=== PATIENT | male | born 1975 | race Caucasian/White ===

== ENCOUNTER 2016-08-24 19:27 | Inpatient (IN) | payer MEDICARE, MEDICAID ==
[~2016-08-24] VITALS: Ht 165.1 cm; Wt 69.4 kg
[2016-08-24] MEDS ORDERED: CARB200T6 PO (20:05)
[2016-08-24] MEDS ORDERED: CLON2 PO (20:06)
[2016-08-24 20:28] LABS: BASOPHILS % (AUTO) 0.4 % (0.0-2.0); EOSINOPHILS % (AUTO) 3.2 % (1.0-6.0); HEMATOCRIT 46.4 % (41-53); HEMOGLOBIN 15.1 g/dL (13.5-17.5); LYMPHOCYTES # (AUTO) 1.8 K/uL (1.0-4.8); LYMPHOCYTES % (AUTO) 25.2 % (22.0-44.0); MEAN CORPUSCULAR HEMOGLOBIN 29.6 pg (26.0-34.0); MEAN CORPUSCULAR HGB CONC 32.6 G/dL (31.0-37.0); MEAN CORPUSCULAR VOLUME 91 fL (80-100); MONOCYTES # (AUTO) 0.4 K/uL (0.1-1.0); MONOCYTES % (AUTO) 5.1 % (2.0-9.0); NEUTROPHILS # (AUTO) 4.8 K/uL (1.8-7.7); NEUTROPHILS % (AUTO) 66.1 % (40.0-70.0); PLATELET COUNT (AUTO) 229 K/uL (150-450); RED CELL DISTRIBUTION WIDTH 13.2 % (11.5-14.5); WHITE BLOOD COUNT (AUTO) 7.2 K/uL (4.5-11.0)
[2016-08-24 20:35] LABS: ANION GAP 6 mmol/L (8-16); CALCIUM, TOTAL 8.6 mg/dL (8.8-10.5); CARBON DIOXIDE 29 mmol/L (22-29); CHLORIDE 103 mmol/L (98-107); CREATININE 0.85 mg/dL (0.60-1.30); GLOMERULAR FILTR. RATE CALC > 60 mL/min (>60); POTASSIUM 3.5 mmol/L (3.5-5.1); SODIUM SERUM 138 mmol/L (136-145); UREA NITROGEN, BLOOD 8 mg/dL (7-18)
[2016-08-24 20:44] LABS: ALANINE AMINOTRANSFERASE 68 U/L (12-78); ALBUMIN 3.8 g/dL (3.4-5.0); ASPARTATE AMINOTRANSFERASE 31 U/L (15-37); BILIRUBIN,TOTAL 0.2 mg/dL (0.1-1.0); TOTAL PROTEIN, SERUM 8.1 g/dL (6.4-8.2)
[2016-08-24] MEDS ORDERED: HALOPERIDOL 5 MG TABLET PO PRN (21:00)
[2016-08-24] MEDS ORDERED: ZOLPIDEM TARTRATE 10 MG TABLET PO PRN (21:00)
[2016-08-24] MEDS ORDERED: LORazepam 2 MG TABLET PO PRN (21:00)
[2016-08-24] MEDS ORDERED: DIVALPROEX SODIUM 500 MG ER TABLET PO ONE (23:15)
[2016-08-24] MEDS ORDERED: ClonazePAM 1 MG TABLET PO ONE (23:15)
[2016-08-25 00:50] VITALS: BP 144/92
[2016-08-25] MEDS ORDERED: IBUPROFEN 600 MG TABLET PO PRN (06:30)
[2016-08-25] MEDS ORDERED: ACETAMINOPHEN 325 MG TABLET PO PRN (06:30)
[2016-08-25 07:48] LABS: ADD UA MICROSCOPIC NO; APPEARANCE,URINE CLEAR (CLEAR); GLUCOSE, URINE (UA) NEGATIVE (NEGATIVE); KETONES,URINE NEGATIVE (NEGATIVE); LEUKOCYTE ESTERASE ,URINE NEGATIVE (NEGATIVE); OCCULT BLOOD,URINE NEGATIVE (NEGATIVE); PH,URINE 7.5 (5.0-8.0); PROTEIN,URINE NEGATIVE (NEGATIVE)
[2016-08-25 08:21] VITALS: BP 116/73
[2016-08-25] MEDS ORDERED: CLON1 PO (10:40)
[2016-08-25 16:39] VITALS: BP 117/73
[2016-08-25] MEDS: CarBAMazepine 200 MG TABLET PO SCH (20:46)
[2016-08-25] MEDS: ClonazePAM 1 MG TABLET PO SCH (20:46)
[2016-08-25 22:46] VITALS: BP 120/69
[2016-08-26 00:09] VITALS: BP 137/71
[2016-08-26 08:15] VITALS: BP 122/86
[2016-08-26] MEDS: ClonazePAM 1 MG TABLET PO SCH ×2 (08:15→20:00)
[2016-08-26 16:15] VITALS: BP 150/99
[2016-08-26 19:08] VITALS: BP 148/84
[2016-08-26] MEDS: CarBAMazepine 200 MG TABLET PO SCH (20:00)
[2016-08-27] MEDS: ClonazePAM 1 MG TABLET PO SCH ×2 (08:14→20:45)
[2016-08-27 11:00] VITALS: BP 112/59
[2016-08-27 16:11] VITALS: BP 128/75
[2016-08-27] MEDS: CarBAMazepine 200 MG TABLET PO SCH (20:45)
[2016-08-28 05:00] VITALS: BP 138/68
[2016-08-28] MEDS: ClonazePAM 1 MG TABLET PO SCH ×2 (08:06→20:04)
[2016-08-28 10:21] VITALS: BP 115/71
[2016-08-28 16:48] VITALS: BP 116/72
[2016-08-28] MEDS: CarBAMazepine 200 MG TABLET PO SCH (20:05)
[2016-08-29 06:22] VITALS: BP 119/70
[2016-08-29] MEDS: ClonazePAM 1 MG TABLET PO SCH (08:50)
[2016-08-29 13:44] VITALS: BP 136/77
== END 2016-08-29 16:45 | disposition home or self-care (01) | DRG 885 ==
LOC: EMS 19:28 → 3EX 22:30
PROVIDERS: ADMIT Psychiatry & Neurology Child & Adolescent Psychiatry; ATTEND Psychiatry & Neurology Child & Adolescent Psychiatry
DX: F25.9 Schizoaffective disorder, unspecified (principal); R45.851 Suicidal ideations; I69.351 Hemiplegia and hemiparesis following cerebral infarction affecting right dominant side; F20.0 Paranoid schizophrenia; F41.9 Anxiety disorder, unspecified; G40.909 Epilepsy, unspecified, not intractable, without status epilepticus; M21.371 Foot drop, right foot; G80.9 Cerebral palsy, unspecified; R51 Headache; R26.9 Unspecified abnormalities of gait and mobility; Z79.899 Other long term (current) drug therapy; Z82.3 Family history of stroke
CPT/HCPCS: 99285; G0480

== ENCOUNTER 2016-12-13 13:02 | Emergency (ER) | payer MEDICARE, MEDICAID ==
[~2016-12-13] VITALS: Ht 152.4 cm; Wt 60.0 kg
[~2016-12-13 13:02] MED LIST: CARB200T6 PO; CLON1 PO
[2016-12-13] MEDS ORDERED: PHEN50 PO (13:32)
[2016-12-13] MEDS ORDERED: BUSP5TAB20 PO (13:32)
[2016-12-13] MEDS ORDERED: PRIM250T30 PO (13:32)
[2016-12-13] MEDS ORDERED: LAMO25 PO (13:32)
[2016-12-13] MEDS ORDERED: AMIT10TA6 PO (13:32)
[2016-12-13] MEDS ORDERED: RISP1 PO (13:32)
[2016-12-13] MEDS ORDERED: BUSP10TA23 PO (13:33)
[2016-12-13] MEDS ORDERED: LAMO100 PO (13:33)
[2016-12-13] MEDS ORDERED: ACETAMINOPHEN 500 MG TABLET PO ONE (13:45)
[2016-12-13 14:03] LABS: BASOPHILS # (AUTO) 0.02 K/uL (0.00-0.20); BASOPHILS % (AUTO) 0.3 % (0.0-2.0); EOSINOPHILS # (AUTO) 0.05 K/uL (0.00-0.70); EOSINOPHILS % (AUTO) 0.72 % (1.0-6.0); HEMATOCRIT 43.5 % (41-53); HEMOGLOBIN 15.1 g/dL (13.5-17.5); MEAN CORPUSCULAR HEMOGLOBIN 30.9 pg (26.0-34.0); MEAN CORPUSCULAR HGB CONC 34.7 G/dL (31.0-37.0); MEAN CORPUSCULAR VOLUME 89 fL (80-100); MONOCYTES # (AUTO) 0.3 K/uL (0.1-1.0); MONOCYTES % (AUTO) 4.2 % (2.0-9.0); NEUTROPHILS # (AUTO) 5.9 K/uL (1.8-7.7); NEUTROPHILS % (AUTO) 80.8 % (40.0-70.0); PLATELET COUNT (AUTO) 235 K/uL (150-450); RED BLOOD CELL COUNT(AUTO) 4.87 MIL/uL (4.50-5.90); RED CELL DISTRIBUTION WIDTH 13.2 % (11.5-14.5); WHITE BLOOD COUNT (AUTO) 7.3 K/uL (4.5-11.0)
[2016-12-13 14:15] LABS: ANION GAP 11 mmol/L (8-16); CALCIUM, TOTAL 8.8 mg/dL (8.8-10.5); CARBON DIOXIDE 25 mmol/L (22-29); CHLORIDE 101 mmol/L (98-107); CREATININE 0.61 mg/dL (0.60-1.30); GLOMERULAR FILTR. RATE CALC > 60 mL/min (>60); POTASSIUM 3.4 mmol/L (3.5-5.1); SODIUM SERUM 137 mmol/L (136-145); UREA NITROGEN, BLOOD 5 mg/dL (7-18)
[2016-12-13 14:20] LABS: ALANINE AMINOTRANSFERASE 29 U/L (12-78); ALBUMIN 3.9 g/dL (3.4-5.0); ASPARTATE AMINOTRANSFERASE 13 U/L (15-37); BILIRUBIN,TOTAL 0.2 mg/dL (0.1-1.0); TOTAL PROTEIN, SERUM 8.3 g/dL (6.4-8.2)
[2016-12-13 15:21] LABS: APPEARANCE,URINE CLEAR (CLEAR); GLUCOSE, URINE (UA) NEGATIVE (NEGATIVE); KETONES,URINE NEGATIVE (NEGATIVE); LEUKOCYTE ESTERASE ,URINE NEGATIVE (NEGATIVE); OCCULT BLOOD,URINE NEGATIVE (NEGATIVE); PH,URINE 6.5 (5.0-8.0); PROTEIN,URINE NEGATIVE (NEGATIVE)
[2016-12-13 15:31] LABS: ADD UA MICROSCOPIC NO
[2016-12-13 17:03] VITALS: BP 115/68
== END 2016-12-13 17:06 | disposition home or self-care (01) ==
LOC: EMS 13:03
DX: R14.0 Abdominal distension (gaseous) (principal); R19.7 Diarrhea, unspecified
CPT/HCPCS: 99284

== ENCOUNTER 2019-04-12 17:51 | Emergency (ER) | payer MEDICARE, MEDICAID ==
[~2019-04-12] VITALS: Ht 152.4 cm; Wt 65.0 kg
[~2019-04-12 17:51] MED LIST changes: +AMIT10TA6 PO; +BUSP10TA23 PO; -CARB200T6 PO; -CLON1 PO; +CLON1TAB13 PO; +LAMO100 PO; +PHEN50 PO; +RISP1 PO; +[UNRECOGNIZED DRUG - CODE] PO
[2019-04-12] MEDS ORDERED: HYDROCODONE/ACETAMINOPHEN 5-325 MG TABLET PO ONE (19:30)
[2019-04-12] MEDS ORDERED: CARB200T6 PO (19:39)
[2019-04-12] MEDS ORDERED: PRIM50 PO (19:39)
[2019-04-12] MEDS ORDERED: AMIT50TA3 PO (19:39)
[2019-04-12] MEDS ORDERED: PHENY100 PO (19:39)
[2019-04-12] MEDS ORDERED: DIVA500T52 PO (19:39)
[2019-04-12] MEDS ORDERED: ATOR10TA69 PO (19:39)
[2019-04-12 20:15] VITALS: BP 138/90
== END 2019-04-12 20:15 | disposition home or self-care (01) ==
LOC: EMS 17:53
DX: S40.011A Contusion of right shoulder, initial encounter (principal); F41.9 Anxiety disorder, unspecified; F31.9 Bipolar disorder, unspecified; F20.9 Schizophrenia, unspecified; Z79.899 Other long term (current) drug therapy; W01.0XXA Fall on same level from slipping, tripping and stumbling without subsequent striking against object, initial encounter; Y93.89 Activity, other specified; Y92.89 Other specified places as the place of occurrence of the external cause; Y99.8 Other external cause status

== ENCOUNTER 2023-01-21 14:48 | Emergency (ER) | payer MEDICARE, MEDICAID ==
[~2023-01-21] VITALS: Ht 160 cm; Wt 63.6 kg
[~2023-01-21 14:48] MED LIST changes: -AMIT10TA6 PO; +AMIT50TA4 PO; +ATOR10TA69 PO; +CARB200T6 PO; +CLON-595 PO; -CLON1TAB13 PO; +DIVA500T53 PO; +LAMO-24 PO; -LAMO100 PO; +PHEN100C10 PO; -PHEN50 PO; +PRIM250T3 PO; +PRIM50TA3 PO; -RISP1 PO; +RISP1TAB48 PO; -[UNRECOGNIZED DRUG - CODE] PO
[2023-01-21] MEDS ORDERED: LevETIRAcetam 1,000 MG in DEXTROSE 5%-WATER 100 ML IV ONE (15:00)
[2023-01-21 16:04] LABS: BASOPHILS % (AUTO) 0.6 % (0.0-2.0); EOSINOPHILS % (AUTO) 1.5 % (1.0-6.0); HEMATOCRIT 37.7 % (41-53); HEMOGLOBIN 13.4 g/dL (13.5-17.5); LYMPHOCYTES # (AUTO) 1.4 K/uL (1.0-4.8); LYMPHOCYTES % (AUTO) 19.3 % (22.0-44.0); MEAN CORPUSCULAR HEMOGLOBIN 31.9 pg (26.0-34.0); MEAN CORPUSCULAR HGB CONC 35.5 G/dL (31.0-37.0); MEAN CORPUSCULAR VOLUME 90 fL (80-100); MONOCYTES # (AUTO) 0.6 K/uL (0.1-1.0); MONOCYTES % (AUTO) 7.8 % (2.0-9.0); NEUTROPHILS # (AUTO) 5.1 K/uL (1.8-7.7); NEUTROPHILS % (AUTO) 70.8 % (40.0-70.0); PLATELET COUNT (AUTO) 195 K/uL (150-450); RED CELL DISTRIBUTION WIDTH 13.3 % (11.5-14.5); WHITE BLOOD COUNT (AUTO) 7.2 K/uL (4.5-11.0)
[2023-01-21 16:20] LABS: B-TYPE NATRIURETIC PEPTIDE 11 pg/mL (0-100)
[2023-01-21 16:22] VITALS: TEMP 98.2
[2023-01-21 16:22] LABS: TROPONIN I-HIGH SENSITIVITY Less Than 4 ng/L (<76)
[2023-01-21 16:25] LABS: ANION GAP 6 mmol/L (8-16); CALCIUM, TOTAL 9.3 mg/dL (8.8-10.5); CARBON DIOXIDE 28 mmol/L (22-29); CHLORIDE 94 mmol/L (98-107); CREATININE 0.61 mg/dL (0.60-1.30); GLOMERULAR FILTR. RATE CALC > 60 mL/min (>60); GLUCOSE,RANDOM 116 mg/dL (70-110); SODIUM SERUM 128 mmol/L (136-145); UREA NITROGEN, BLOOD 5 mg/dL (7-18)
[2023-01-21 16:38] LABS: PLATELET MORPHOLOGY COMMENT LARGE PLTS PRESENT; RBC MORPHOLOGY COMMENT NORMAL RBC MORPH
[2023-01-21 16:47] LABS: ALANINE AMINOTRANSFERASE 64 U/L (12-78); ALBUMIN 3.4 g/dL (3.4-5.0); ALKALINE PHOSPHATASE 76 U/L (46-116); ASPARTATE AMINOTRANSFERASE 33 U/L (15-37); BILIRUBIN,TOTAL 0.2 mg/dL (0.1-1.0); CREATINE KINASE, TOTAL ONLY 92 U/L (39-308); TOTAL PROTEIN, SERUM 8.2 g/dL (6.4-8.2)
[2023-01-21 19:45] VITALS: BP 137/78; PULSE 91; RESP 18
== END 2023-01-21 21:17 | disposition home or self-care (01) ==
LOC: EMS 15:43
DX: G40.909 Epilepsy, unspecified, not intractable, without status epilepticus (principal); F41.9 Anxiety disorder, unspecified; F31.9 Bipolar disorder, unspecified; F20.9 Schizophrenia, unspecified
CPT/HCPCS: 99285; 96365; 70450; 71045; 80053; 82550; 83880; 84484; 85025; 36415; 93005; J0712; J7060

== ENCOUNTER 2023-04-09 12:16 | Emergency (ER) | payer MEDICARE, MEDICAID ==
[~2023-04-09] VITALS: Ht 152.4 cm; Wt 78.2 kg
[2023-04-09 12:38] VITALS: TEMP 98.7
[2023-04-09] MEDS ORDERED: LevETIRAcetam 1,000 MG in DEXTROSE 5%-WATER 100 ML IV ONE (12:45)
[2023-04-09 13:15] LABS: BASOPHILS % (AUTO) 0.4 % (0.0-2.0); EOSINOPHILS % (AUTO) 1.2 % (1.0-6.0); HEMOGLOBIN 14.8 g/dL (13.5-17.5); LYMPHOCYTES # (AUTO) 1.6 K/uL (1.0-4.8); LYMPHOCYTES % (AUTO) 20.1 % (22.0-44.0); MEAN CORPUSCULAR HEMOGLOBIN 32.3 pg (26.0-34.0); MEAN CORPUSCULAR HGB CONC 35.3 G/dL (31.0-37.0); MEAN CORPUSCULAR VOLUME 91 fL (80-100); MONOCYTES # (AUTO) 0.5 K/uL (0.1-1.0); MONOCYTES % (AUTO) 6.5 % (2.0-9.0); NEUTROPHILS # (AUTO) 5.9 K/uL (1.8-7.7); NEUTROPHILS % (AUTO) 71.8 % (40.0-70.0); RED BLOOD CELL COUNT(AUTO) 4.59 MIL/uL (4.50-5.90); RED CELL DISTRIBUTION WIDTH 13.3 % (11.5-14.5); WHITE BLOOD COUNT (AUTO) 8.1 K/uL (4.5-11.0)
[2023-04-09 13:26] LABS: ANION GAP 10 mmol/L (8-16); CALCIUM, TOTAL 9.5 mg/dL (8.8-10.5); CARBON DIOXIDE 28 mmol/L (22-29); CHLORIDE 93 mmol/L (98-107); CREATININE 0.58 mg/dL (0.60-1.30); GLOMERULAR FILTR. RATE CALC > 60 mL/min (>60); GLUCOSE,RANDOM 116 mg/dL (70-110); SODIUM SERUM 131 mmol/L (136-145); UREA NITROGEN, BLOOD 7 mg/dL (7-18)
[2023-04-09 13:31] LABS: B-TYPE NATRIURETIC PEPTIDE < 5 pg/mL (0-100)
[2023-04-09 13:33] LABS: TROPONIN I-HIGH SENSITIVITY Less Than 4 ng/L (<76)
[2023-04-09 13:51] LABS: ALANINE AMINOTRANSFERASE 73 U/L (12-78); ALKALINE PHOSPHATASE 73 U/L (46-116); ASPARTATE AMINOTRANSFERASE 45 U/L (15-37); BILIRUBIN,TOTAL 0.2 mg/dL (0.1-1.0); CREATINE KINASE, TOTAL ONLY 172 U/L (39-308); TOTAL PROTEIN, SERUM 8.7 g/dL (6.4-8.2); VALPROIC ACID 88 mcg/mL (50-100)
[2023-04-09 13:52] LABS: PHENYTOIN (DILANTIN) < 0.5 mcg/mL (10.0-20.0)
[2023-04-09 14:08] LABS: PLATELET COUNT (AUTO) 221 K/uL (150-450)
[2023-04-09 15:02] LABS: COVID AG,FIA SOURCE NASAL SWAB
[2023-04-09 15:23] LABS: SARS-COV2 (COVID) ANTIGEN,FIA Negative (Negative)
[2023-04-09 15:25] LABS: INFLUENZA TYPE A NEGATIVE FOR TYPE A (NEGATIVE); INFLUENZA TYPE B NEGATIVE FOR TYPE B (NEGATIVE)
[2023-04-09 15:37] LABS: APPEARANCE,URINE CLEAR (CLEAR); BILIRUBIN,URINE NEGATIVE (NEGATIVE); COLOR,URINE COLORLESS (YELLOW); GLUCOSE, URINE (UA) NEGATIVE (NEGATIVE); KETONES,URINE NEGATIVE (NEGATIVE); LEUKOCYTE ESTERASE ,URINE NEGATIVE (NEGATIVE); NITRATE,URINE NEGATIVE (NEGATIVE); OCCULT BLOOD,URINE NEGATIVE (NEGATIVE); PH,URINE 7.5 (5.0-8.0); PROTEIN,URINE NEGATIVE (NEGATIVE); SPECIFIC GRAVITIY, URINE 1.009 (1.003-1.030); UROBILINOGEN,URINE <=1.0 mg/dL (<=1.0)
[2023-04-09 20:15] VITALS: BP 157/87; PULSE 94; RESP 18
== END 2023-04-09 20:30 | disposition home or self-care (01) ==
LOC: EMS 12:24
DX: R56.9 Unspecified convulsions (principal); F41.9 Anxiety disorder, unspecified; F31.9 Bipolar disorder, unspecified; F20.9 Schizophrenia, unspecified; Z20.822 Contact with and (suspected) exposure to COVID-19
CPT/HCPCS: 99285; 96365; 71045; 87426; 80053; 80164; 80185; 81003; 82550; 83880; 84484; 85025; 87804; 36415; 93005; J0712; J7060

== ENCOUNTER 2024-01-14 12:06 | Emergency (ER) | payer MEDICARE, MEDICAID ==
[~2024-01-14] VITALS: Ht 157.5 cm; Wt 74.5 kg
[~2024-01-14 12:06] MED LIST changes: +AMIT-260 PO; -AMIT50TA4 PO; +DIVA-153 PO; -DIVA500T53 PO
[2024-01-14 13:09] VITALS: TEMP 98.6
[2024-01-14] MEDS ORDERED: CARB-92 PO (13:29)
[2024-01-14 14:22] LABS: BASOPHILS % (AUTO) 0.4 % (0.0-2.0); HEMATOCRIT 44.5 % (41-53); HEMOGLOBIN 15.1 g/dL (13.5-17.5); LYMPHOCYTES # (AUTO) 1.3 K/uL (1.0-4.8); LYMPHOCYTES % (AUTO) 21.1 % (22.0-44.0); MEAN CORPUSCULAR HEMOGLOBIN 31.4 pg (26.0-34.0); MEAN CORPUSCULAR VOLUME 92 fL (80-100); MONOCYTES # (AUTO) 0.4 K/uL (0.1-1.0); MONOCYTES % (AUTO) 7.2 % (2.0-9.0); NEUTROPHILS # (AUTO) 4.1 K/uL (1.8-7.7); NEUTROPHILS % (AUTO) 69.3 % (40.0-70.0); PLATELET COUNT (AUTO) 232 K/uL (150-450); RED BLOOD CELL COUNT(AUTO) 4.83 MIL/uL (4.50-5.90); RED CELL DISTRIBUTION WIDTH 13.2 % (11.5-14.5)
[2024-01-14 14:30] LABS: AMPHET/METH SCREEN,URINE NEGATIVE (NEGATIVE); BARBITURATE SCREEN, URINE POSITIVE (NEGATIVE); BENZODIAZEPINES SCREEN,URINE NEGATIVE (NEGATIVE); CANNABINOID SCREEN,URINE NEGATIVE (NEGATIVE); COCAINE SCREEN,URINE NEGATIVE (NEGATIVE); METHADONE SCREEN, URINE NEGATIVE (NEGATIVE); OPIATE SCREEN,URINE NEGATIVE (NEGATIVE); PHENCYCLIDINE SCREEN,URINE NEGATIVE (NEGATIVE)
[2024-01-14 14:36] LABS: ANION GAP 11 mmol/L (8-16); CALCIUM, TOTAL 8.3 mg/dL (8.8-10.5); CARBON DIOXIDE 27 mmol/L (22-29); CHLORIDE 91 mmol/L (98-107); CREATININE 0.57 mg/dL (0.60-1.30); GLOMERULAR FILTR. RATE CALC > 60 mL/min (>60); GLUCOSE,RANDOM 101 mg/dL (70-110); POTASSIUM 3.9 mmol/L (3.5-5.1); SODIUM SERUM 129 mmol/L (136-145); UREA NITROGEN, BLOOD 5 mg/dL (7-18)
[2024-01-14 14:39] LABS: ALCOHOL, BLOOD (SERUM) < 3 mg/dL (0-10)
[2024-01-14 14:45] LABS: ALCOHOL, URINE DRUG SCREEN NEGATIVE (NEGATIVE)
[2024-01-14 15:32] VITALS: BP 124/79; PULSE 84; RESP 16; O2SAT 97
[2024-01-14] MEDS: ClonazePAM 1 MG TABLET PO ONE (16:09)
[2024-01-14] MEDS: CarBAMazepine 200 MG TABLET PO ONE (16:09)
== END 2024-01-14 16:50 | disposition home or self-care (01) ==
LOC: EMS 12:06
DX: E87.1 Hypo-osmolality and hyponatremia (principal); G40.A09 Absence epileptic syndrome, not intractable, without status epilepticus; R62.50 Unspecified lack of expected normal physiological development in childhood; F41.9 Anxiety disorder, unspecified; F31.9 Bipolar disorder, unspecified; F20.9 Schizophrenia, unspecified
CPT/HCPCS: 99283; 80048; 85025; 36415; 80307; G0480

== ENCOUNTER 2025-02-18 14:50 | Emergency (ER) | payer MEDICARE, MEDICAID ==
[~2025-02-18] VITALS: Ht 157.5 cm; Wt 74.5 kg
[~2025-02-18 14:50] MED LIST changes: +CARB-92 PO; -CARB200T6 PO; -CLON-595 PO; -LAMO-24 PO; -PHEN100C10 PO; -PRIM250T3 PO; -PRIM50TA3 PO; -RISP1TAB48 PO
[2025-02-18 14:59] VITALS: TEMP 98
[2025-02-18 15:37] LABS: PLATELET COUNT (AUTO) 190 K/uL (150-450); RED BLOOD CELL COUNT(AUTO) 4.05 MIL/uL (4.50-5.90); RED CELL DISTRIBUTION WIDTH 13.3 % (11.5-14.5); WHITE BLOOD COUNT (AUTO) 5.7 K/uL (4.5-11.0)
[2025-02-18 15:55] LABS: VALPROIC ACID 58.0 mcg/mL (50-100)
[2025-02-18 15:57] LABS: CALCIUM, TOTAL 8.3 mg/dL (8.8-10.5); CREATININE 0.62 mg/dL (0.60-1.30); GLOMERULAR FILTR. RATE CALC > 60 mL/min (>60); GLUCOSE,RANDOM 124 mg/dL (70-110); UREA NITROGEN, BLOOD 7 mg/dL (7-18)
[2025-02-18] MEDS: SODIUM CHLORIDE 0.9% 1,000 ML IV ONE (15:58)
[2025-02-18 16:00] LABS: SODIUM SERUM 129 mmol/L (136-145)
[2025-02-18 16:50] LABS: APPEARANCE,URINE CLEAR (CLEAR); GLUCOSE, URINE (UA) NEGATIVE (NEGATIVE); LEUKOCYTE ESTERASE ,URINE NEGATIVE (NEGATIVE); NITRATE,URINE NEGATIVE (NEGATIVE); OCCULT BLOOD,URINE NEGATIVE (NEGATIVE); SPECIFIC GRAVITIY, URINE 1.011 (1.003-1.030)
[2025-02-18 18:15] VITALS: BP 137/90; PULSE 93; RESP 18; O2SAT 95
== END 2025-02-18 19:13 ==
LOC: EMS 15:08
DX: G40.909 Epilepsy, unspecified, not intractable, without status epilepticus (principal); F20.9 Schizophrenia, unspecified; F31.9 Bipolar disorder, unspecified; F41.9 Anxiety disorder, unspecified; G80.9 Cerebral palsy, unspecified; E87.1 Hypo-osmolality and hyponatremia; Z79.899 Other long term (current) drug therapy
CPT/HCPCS: 80048; 80156; 80164; 81003; 85025; 96360; 96361; 99283; 36415-L1; 36415-TC